=== PATIENT | female | born 1965 | race Caucasian/White ===

== ENCOUNTER 2017-07-26 09:15 | Day surgery (SDC) | payer BC ==
[2017-07-26] MEDS ORDERED: LIDOcaine 2% 5ml jelly ONE (09:48)
[2017-07-26] MEDS ORDERED: EST1T PO (10:14)
[2017-07-26] MEDS ORDERED: NAPR500T6 PO (10:14)
[2017-07-26] MEDS ORDERED: MULT-38 PO (10:15)
[2017-07-26] MEDS ORDERED: IBUP-1984 PO (10:15)
[2017-07-26] MEDS ORDERED: CYAN-19 PO (10:16)
[2017-07-26] MEDS ORDERED: MAGN400C PO (10:16)
[2017-07-26] MEDS ORDERED: POTA10TA19 PO (10:17)
== END 2017-07-26 11:20 | disposition home or self-care (01) ==
LOC: WOUND CARE 09:15
PROVIDERS: ATTEND Surgery
DX: L97.811 Non-pressure chronic ulcer of other part of right lower leg limited to breakdown of skin (principal)
CPT/HCPCS: 11042; A6021; A6206; A6212

== ENCOUNTER 2017-08-01 10:18 | Day surgery (SDC) | payer BC ==
[~2017-08-01 10:18] MED LIST: CYAN-19 PO; EST1T PO; IBUP-1984 PO; MAGN400C PO; MULT-38 PO; NAPR500T6 PO; POTA10TA19 PO
[2017-08-01] MEDS ORDERED: LIDOcaine 2% 5ml jelly ONE (11:00)
== END 2017-08-01 11:49 | disposition home or self-care (01) ==
LOC: WOUND CARE 10:18
PROVIDERS: ATTEND Surgery
DX: L97.811 Non-pressure chronic ulcer of other part of right lower leg limited to breakdown of skin (principal)
CPT/HCPCS: 97597; A6021; A6206; A6209

== ENCOUNTER 2017-08-09 10:51 | Day surgery (SDC) | payer BC ==
[2017-08-09] MEDS ORDERED: LIDOcaine 2% 5ml jelly ONE (11:31)
== END 2017-08-09 12:17 | disposition home or self-care (01) ==
LOC: WOUND CARE 10:51
PROVIDERS: ATTEND Surgery
DX: L97.811 Non-pressure chronic ulcer of other part of right lower leg limited to breakdown of skin (principal); F17.200 Nicotine dependence, unspecified, uncomplicated; Z90.710 Acquired absence of both cervix and uterus
CPT/HCPCS: 97597; A6021; A6209; A6222

== ENCOUNTER 2017-08-16 11:06 | Day surgery (SDC) | payer BC ==
[2017-08-16] MEDS ORDERED: LIDOcaine 2% 5ml jelly ONE (12:09)
== END 2017-08-16 12:41 | disposition home or self-care (01) ==
LOC: WOUND CARE 11:06
PROVIDERS: ATTEND Surgery
DX: L97.811 Non-pressure chronic ulcer of other part of right lower leg limited to breakdown of skin (principal); F17.200 Nicotine dependence, unspecified, uncomplicated; Z90.710 Acquired absence of both cervix and uterus
CPT/HCPCS: A6222; C5271; Q4102; A6250

== ENCOUNTER 2017-08-23 10:42 | Day surgery (SDC) | payer BC ==
[2017-08-23] MEDS ORDERED: LIDOcaine 2% 5ml jelly ONE (11:10)
== END 2017-08-23 12:03 | disposition home or self-care (01) ==
LOC: WOUND CARE 10:42
PROVIDERS: ATTEND Surgery
DX: L97.812 Non-pressure chronic ulcer of other part of right lower leg with fat layer exposed (principal); F17.200 Nicotine dependence, unspecified, uncomplicated; Z90.710 Acquired absence of both cervix and uterus
CPT/HCPCS: A6206; A6209; A6222; C5271; Q4102; A6250

== ENCOUNTER 2017-08-30 10:54 | Outpatient (CLI) | payer BC ==
[2017-08-30] MEDS ORDERED: LIDOcaine 2% 5ml jelly ONE (11:12)
== END 2017-08-30 11:45 | disposition home or self-care (01) ==
LOC: WOUND CARE 10:54 → EDSTATUS 11:00 → WOUND CARE 11:45
PROVIDERS: ATTEND Surgery
DX: L97.812 Non-pressure chronic ulcer of other part of right lower leg with fat layer exposed (principal); F17.200 Nicotine dependence, unspecified, uncomplicated; Z90.710 Acquired absence of both cervix and uterus
CPT/HCPCS: 99215; A6021; A6206; A6212

== ENCOUNTER 2017-09-06 10:58 | Day surgery (SDC) | payer BC ==
[2017-09-06] MEDS ORDERED: LIDOcaine 2% 5ml jelly ONE (11:21)
== END 2017-09-06 11:50 | disposition home or self-care (01) ==
LOC: WOUND CARE 10:58
PROVIDERS: ATTEND Surgery
DX: L97.812 Non-pressure chronic ulcer of other part of right lower leg with fat layer exposed (principal); L97.822 Non-pressure chronic ulcer of other part of left lower leg with fat layer exposed; F17.200 Nicotine dependence, unspecified, uncomplicated; Z90.710 Acquired absence of both cervix and uterus
CPT/HCPCS: 17250; A6021; A6209; A6222

== ENCOUNTER 2017-09-13 11:38 | Day surgery (SDC) | payer BC ==
[2017-09-13] MEDS ORDERED: LIDOcaine 2% 5ml jelly ONE (11:47)
== END 2017-09-13 12:38 | disposition home or self-care (01) ==
LOC: WOUND CARE 11:38
PROVIDERS: ATTEND Surgery
DX: L97.812 Non-pressure chronic ulcer of other part of right lower leg with fat layer exposed (principal); F17.200 Nicotine dependence, unspecified, uncomplicated; Z90.710 Acquired absence of both cervix and uterus
CPT/HCPCS: A6209; A6222; C5271; Q4102; A6250

== ENCOUNTER 2017-09-20 11:33 | Outpatient (CLI) | payer BC ==
[2017-09-20] MEDS ORDERED: LIDOcaine 2% 5ml jelly ONE (12:14)
== END 2017-09-20 12:45 | disposition home or self-care (01) ==
LOC: WOUND CARE 11:33
PROVIDERS: ATTEND Surgery
DX: L97.812 Non-pressure chronic ulcer of other part of right lower leg with fat layer exposed (principal); F17.200 Nicotine dependence, unspecified, uncomplicated; Z90.710 Acquired absence of both cervix and uterus
CPT/HCPCS: 99214; A6206; A6212

== ENCOUNTER 2017-09-27 11:25 | Outpatient (CLI) | payer BC ==
[2017-09-27] MEDS ORDERED: LIDOcaine 2% 5ml jelly ONE (11:53)
== END 2017-09-27 12:10 | disposition home or self-care (01) ==
LOC: WOUND CARE 11:25 → EDSTATUS 11:30 → WOUND CARE 12:10
PROVIDERS: ATTEND Surgery
DX: L97.822 Non-pressure chronic ulcer of other part of left lower leg with fat layer exposed (principal); S81.801D Unspecified open wound, right lower leg, subsequent encounter; F17.200 Nicotine dependence, unspecified, uncomplicated; Z90.710 Acquired absence of both cervix and uterus; X58.XXXD Exposure to other specified factors, subsequent encounter
CPT/HCPCS: 99215; A6021; A6206; A6212

== ENCOUNTER 2018-01-02 12:23 | Inpatient (IN) | payer BC ==
[~2018-01-02] VITALS: Ht 162.6 cm; Wt 99.0 kg
[2018-01-02 14:40] LABS: BASOPHILS # (AUTO) 0.1 X10'3 (0-0.2); BASOPHILS % (AUTO) 0.7 % (0-1); EOSINOPHILS # (AUTO) 0.6 X10'3 (0-0.9); EOSINOPHILS % (AUTO) 5.9 % (0-6); HEMATOCRIT 44.2 % (35.0-45.0); HEMOGLOBIN 14.9 g/dl (12.0-16.0); LYMPHOCYTES # (AUTO) 2.5 X10'3 (1.1-4.8); LYMPHOCYTES % (AUTO) 26.7 % (21-51); MEAN CORPUSCULAR HEMOGLOBIN 30.4 PG (27.0-31.0); MEAN CORPUSCULAR HGB CONC 33.8 % (33.0-36.5); MEAN CORPUSCULAR VOLUME 89.8 FL (78-98); MEAN PLATELET VOLUME 8.3 FL (7.4-10.4); MONOCYTES # (AUTO) 0.6 X10'3 (0-0.9); NEUTROPHILS # (AUTO) 5.7 X10'3 (1.8-7.7); NEUTROPHILS % (AUTO) 60.7 % (42-75); PLATELET COUNT 257 X10'3 (140-440); RED BLOOD COUNT 4.92 X10'6 (4.20-5.60); RED CELL DISTRIBUTION WIDTH 14.1 % (11.5-14.5); WHITE BLOOD COUNT 9.3 X10'3 (4.5-11.0)
[2018-01-02 14:54] LABS: ALANINE AMINOTRANSFERASE 22 U/L (12-78); ALBUMIN 3.8 G/DL (3.4-5.0); ALBUMIN/GLOBULIN RATIO 1.2 (1.1-1.5); ALKALINE PHOSPHATASE 69 IU/L (46-116); ANION GAP 10 (8-16); ASPARTATE AMINO TRANSFERASE 13 U/L (10-37); BILIRUBIN,TOTAL 0.3 MG/DL (0.1-1.0); BLOOD UREA NITROGEN 30 MG/DL (7-18); BUN/CREATININE RATIO 34.9 (6.6-38.0); CALCIUM 9.4 MG/DL (8.5-10.1); CHLORIDE 106 MMOL/L (99-107); CREATININE 0.86 MG/DL (0.40-0.90); GLUCOSE 103 MG/DL (70-104); POTASSIUM 4.1 MMOL/L (3.5-5.1); SODIUM 142 MMOL/L (135-145); TOTAL CARBON DIOXIDE 25.7 MMOL/L (24-32); TOTAL PROTEIN 7.1 G/DL (6.4-8.2); eGFR 70 ML/MIN
[2018-01-02] MEDS ORDERED: iohexol 300mg/ml 100ml inj. ONE (15:09)
[2018-01-02] MEDS ORDERED: magnesium hydroxide 30ml (MOM) UD suspension PO PRN (17:15)
[2018-01-02] MEDS ORDERED: morphine 2 MG/ML inj. syringe IV PRN ×2 (17:15)
[2018-01-02] MEDS ORDERED: ondansetron/PF 4mg/2ml inj IV PRN (17:15)
[2018-01-02] MEDS ORDERED: acetaminophen 325mg tablet PO PRN (17:15)
[2018-01-02] MEDS ORDERED: mag hydrox/Alum hydrox/simeth 30ml oral suspension PO PRN (17:15)
[2018-01-02] MEDS ORDERED: DOCU100C41 PO (17:42)
[2018-01-02] MEDS: normal saline 1000ml 1,000 ML IV SCH (17:59)
[2018-01-02 20:00] VITALS: BP 122/83
[2018-01-02] MEDS: heparin, porcine 5000 units/ml vial SQ SCH (20:41)
[2018-01-02] MEDS: piperacillin/tazo 3.375gm/50ml 50 ML IV SCH (20:49)
[2018-01-02] MEDS ORDERED: FLUC100T PO (22:33)
[2018-01-03] VITALS: BP 106/53
[2018-01-03] MEDS ORDERED: HYDROmorphone inj. 0.5 MG/0.5 ML DISP.SYRIN IV PRN (01:05)
[2018-01-03] MEDS: famotidine 20mg tablet PO PRN ×2 (01:37→08:09)
[2018-01-03] MEDS: piperacillin/tazo 3.375gm/50ml 50 ML IV SCH ×3 (01:42→15:25)
[2018-01-03 05:04] LABS: BASOPHILS # (AUTO) 0.1 X10'3 (0-0.2); BASOPHILS % (AUTO) 0.9 % (0-1); EOSINOPHILS # (AUTO) 0.6 X10'3 (0-0.9); EOSINOPHILS % (AUTO) 6.9 % (0-6); HEMATOCRIT 39.7 % (35.0-45.0); HEMOGLOBIN 13.4 g/dl (12.0-16.0); LYMPHOCYTES # (AUTO) 2.3 X10'3 (1.1-4.8); LYMPHOCYTES % (AUTO) 27.2 % (21-51); MEAN CORPUSCULAR HEMOGLOBIN 30.7 PG (27.0-31.0); MEAN CORPUSCULAR HGB CONC 33.8 % (33.0-36.5); MEAN CORPUSCULAR VOLUME 90.7 FL (78-98); MEAN PLATELET VOLUME 8.6 FL (7.4-10.4); MONOCYTES # (AUTO) 0.6 X10'3 (0-0.9); NEUTROPHILS # (AUTO) 4.8 X10'3 (1.8-7.7); PLATELET COUNT 229 X10'3 (140-440); RED BLOOD COUNT 4.38 X10'6 (4.20-5.60); WHITE BLOOD COUNT 8.3 X10'3 (4.5-11.0)
[2018-01-03 05:10] VITALS: BP 113/78
[2018-01-03 05:16] LABS: ALBUMIN 3.2 G/DL (3.4-5.0); ANION GAP 7 (8-16); BLOOD UREA NITROGEN 23 MG/DL (7-18); BUN/CREATININE RATIO 22.5 (6.6-38.0); CALCIUM 8.4 MG/DL (8.5-10.1); CHLORIDE 108 MMOL/L (99-107); CREATININE 1.02 MG/DL (0.40-0.90); GLUCOSE 92 MG/DL (70-104); POTASSIUM 3.8 MMOL/L (3.5-5.1); SODIUM 141 MMOL/L (135-145); TOTAL CARBON DIOXIDE 25.6 MMOL/L (24-32); eGFR 57 ML/MIN
[2018-01-03] MEDS: mag hydrox/Alum hydrox/simeth 30ml oral suspension PO PRN ×2 (05:27→12:49)
[2018-01-03 07:04] LABS: PRE OP PARTIAL THROMB. TIME 24 SECONDS (22-35); PROTHROMBIN TIME 10.1 SECONDS (9.0-12.0)
[2018-01-03 07:07] VITALS: BP 120/80
[2018-01-03 07:10] VITALS: BP 120/80
[2018-01-03] MEDS ORDERED: HYDROmorphone 1 mg/ml syringe ONE (07:46)
[2018-01-03] MEDS: normal saline 1000ml 1,000 ML IV SCH ×2 (07:50→13:11)
[2018-01-03] MEDS: heparin, porcine 5000 units/ml vial SQ SCH (08:00)
[2018-01-03 11:00] VITALS: BP 116/66
[2018-01-03] MEDS ORDERED: DOXY-200 PO (13:43)
[2018-01-03] MEDS ORDERED: FLUC100T PO (13:43)
[2018-01-03] MEDS ORDERED: HYDROmorphone 1 mg/ml syringe IV PRN (13:44)
[2018-01-03] MEDS ORDERED: lactobacillus rhamnosus 10,000 MMU CELLS/CAPSULE PO SCH (20:00)
[2018-01-03] MEDS ORDERED: docusate sod 100mg capsule PO SCH (21:00)
[2018-01-04] MEDS ORDERED: potassium chloride 10mEq ER tablet PO SCH (08:00)
[2018-01-04] MEDS ORDERED: cyanocobalamin 500mcg tablet PO SCH (08:00)
[2018-01-04] MEDS ORDERED: estradiol 1mg tablet PO SCH (08:00)
[2018-01-04] MEDS ORDERED: magnesium oxide 400mg tablet PO SCH (08:00)
[2018-01-04] MEDS ORDERED: multivitamins, therapeutics tablet PO SCH (08:00)
== END 2018-01-03 17:45 | disposition home health service (06) | DRG 863 ==
LOC: ER 12:23 → SUR 3N 17:11 → CMPBEDREQ 19:50
PROVIDERS: ADMIT Family Medicine; ATTEND Internal Medicine
PROC: BW211ZZ Computerized Tomography (CT Scan) of Abdomen and Pelvis using Low Osmolar Contrast (ICD-10-PCS; principal; 2018-01-02)
DX: T81.4XXA Infection following a procedure, initial encounter (principal); L03.311 Cellulitis of abdominal wall; F17.210 Nicotine dependence, cigarettes, uncomplicated; Y82.8 Other medical devices associated with adverse incidents; R91.1 Solitary pulmonary nodule; K42.9 Umbilical hernia without obstruction or gangrene; Z90.49 Acquired absence of other specified parts of digestive tract; Z90.710 Acquired absence of both cervix and uterus; Y92.89 Other specified places as the place of occurrence of the external cause
CPT/HCPCS: 36415; 71045; 74176; 80048; 80053; 85025; 85610; 85730; 87070; 93005; 99285; A6212; A6266; A6449; J1170; J1644; J2270; J2543; J7030; Q9967